=== PATIENT | male | born 1975 | race Asian ===

== ENCOUNTER 2018-05-01 10:17 | Emergency (ER) | payer SELFPAY ==
[~2018-05-01] VITALS: Ht 172.7 cm; Wt 81.2 kg
[2018-05-01 10:38] VITALS: BP 139/95
--- NOTE | 2018-05-01 10:38 | NUR ---
PT AMBULATES TO BED 4
--- NOTE | 2018-05-01 10:41 | NUR ---
Patient being evaluated by physician at bedside.
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
[2018-05-01] MEDS ORDERED: LIDOCAINE 1% 500 MG/50 ML VIAL INJ SCH (11:00)
[2018-05-01] MEDS ORDERED: LIDOCAINE 2% 1000 MG/50 ML VIAL INJ ONE (11:11)
--- NOTE | 2018-05-01 11:34 | NUR ---
STELLA PAUL DOING I AND D.
--- NOTE | 2018-05-01 11:47 | NUR ---
1 % LIDOCAINE NOT LOADED IN THE PYXIS ,ER MD NOTIFIED; LIDOCAINE 2 % 1000 MG / 50 ML WAS USED BY ER MD FOR I AND D; NO ADVERSE REACTION NOTED;
[2018-05-01 12:04] VITALS: BP 139/95
--- NOTE | 2018-05-01 12:04 | NUR ---
Patient discharged with v/s stable. Written and verbal after care instructions given and explained. Patient alert, oriented and verbalized understanding of instructions. with steady gait. All questions addressed prior to discharge. ID band removed. Patient advised to follow up with PMD. Rx of CLINDAMYCIN AND MOTRIN given. Patient educated on indication of medication including possible reaction and side effects. Opportunity to ask questions provided and answered.
== END 2018-05-01 12:04 | disposition home or self-care (01) ==
LOC: MED 10:17
DX: H66.42 Suppurative otitis media, unspecified, left ear (principal); F17.200 Nicotine dependence, unspecified, uncomplicated
CPT/HCPCS: 10060; 99283; J2001

== ENCOUNTER 2018-11-28 07:28 | Emergency (ER) | payer MEDICAID ==
[~2018-11-28] VITALS: Ht 170.2 cm; Wt 81.2 kg
[2018-11-28 07:33] VITALS: BP 155/95
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
--- NOTE | 2018-11-28 08:15 | NUR ---
Dr. Singleton evaluating patient at bedside.
[2018-11-28] MEDS ORDERED: MORPHINE SULFATE 4 MG/ML SYR IM ONE (08:25)
[2018-11-28] MEDS ORDERED: DIAZEPAM 5 MG TAB PO ONE (08:25)
--- NOTE | 2018-11-28 08:53 | NUR ---
PT AAOX4, FULL CLEAR SPEECH. PT STATES RELIEF FROM LOWER BACK PAIN, PT STATES /. PT ABLE TO AMBULATE STEADY WITH NO GUARDING. DENIES SOB, DIZZINESS.
[2018-11-28 09:05] VITALS: BP 143/90
--- NOTE | 2018-11-28 09:05 | NUR ---
Patient discharged with v/s stable. Written and verbal after care instructions given and explained. Patient verbalized understanding. Ambulatory with steady gait. All questions addressed prior to discharge. Advised to follow up with PMD.
== END 2018-11-28 09:05 | disposition home or self-care (01) ==
LOC: MED 07:28
DX: S39.012A Strain of muscle, fascia and tendon of lower back, initial encounter (principal); R03.0 Elevated blood-pressure reading, without diagnosis of hypertension; X58.XXXA Exposure to other specified factors, initial encounter; Y93.89 Activity, other specified; Y92.89 Other specified places as the place of occurrence of the external cause; Y99.8 Other external cause status
CPT/HCPCS: 96372; 99283; J2270

== ENCOUNTER 2019-07-25 09:06 | Emergency (ER) | payer MEDICAID ==
[~2019-07-25] VITALS: Ht 170.2 cm; Wt 77.6 kg
[2019-07-25 09:17] VITALS: BP 139/84
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
[2019-07-25] MEDS ORDERED: LIDOCAINE MPF 1% 10 MG/ML VIAL INJ ONE (10:05)
[2019-07-25 11:10] VITALS: BP 149/98
--- NOTE | 2019-07-25 11:10 | NUR ---
Patient discharged with v/s stable. Written and verbal after care instructions given and explained. Patient alert, oriented and verbalized understanding of instructions. Ambulatory with steady gait. All questions addressed prior to discharge. ID band removed. Patient advised to follow up with PMD. Rx of Keflex, Motrin, [place] given. Patient educated on indication of medication including possible reaction and side effects. Opportunity to ask questions provided and answered.
== END 2019-07-25 11:10 | disposition home or self-care (01) ==
LOC: MED 09:06
DX: M27.2 Inflammatory conditions of jaws (principal); F17.200 Nicotine dependence, unspecified, uncomplicated
CPT/HCPCS: 10060; 99283; J2001

== ENCOUNTER 2022-03-25 06:35 | Emergency (ER) | payer MEDICAID ==
[~2022-03-25] VITALS: Ht 170.2 cm; Wt 77.1 kg
[2022-03-25 06:43] VITALS: BP 146/113
--- NOTE | 2022-03-25 06:48 | NUR ---
Patient ambulated to bed 11.
--- NOTE | 2022-03-25 06:50 | NUR ---
Dr. Yanes examining patient.
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
--- NOTE | 2022-03-25 07:01 | NUR ---
ekg in progress
--- NOTE | 2022-03-25 07:22 | NUR ---
RECEIVED ORDER FROM DOCTOR GUZMAN TO PLACE PT ON 15L NON-REBREATHER Addendum: 03/25/22 at 0727 by [email or web address] FOR INCREASED CARBOXYHEMOGLOBIN LEVELS
--- NOTE | 2022-03-25 07:24 | NUR ---
REPORT RECEIVED FROM LETI ROB, TRANSFER OF CARE AT THIS TIME, PT IN BED AWAKE AND ALERT ON 15L NON-REBREATHER MASK, DENIES PAIN AT THIS TIME. RESPIRATIONS EVEN AND UNLABORED, NO ACCESSORY MUSCLE USE, NO NASAL FLARING
[2022-03-25 09:27] VITALS: BP 98/55
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
== END 2022-03-25 09:27 | disposition home or self-care (01) ==
LOC: MED 06:35
DX: T58.91XA Toxic effect of carbon monoxide from unspecified source, accidental (unintentional), initial encounter (principal); J18.9 Pneumonia, unspecified organism; F17.210 Nicotine dependence, cigarettes, uncomplicated; Y92.89 Other specified places as the place of occurrence of the external cause
CPT/HCPCS: 36600; 71045; 82803; 93005; 99285; Q0092

== ENCOUNTER 2022-04-08 07:45 | Emergency (ER) | payer BC, MEDICAID ==
[2022-04-08] MEDS ORDERED: KETO5SOL7 OP (10:22)
[2022-04-08 10:40] VITALS: BP 157/99
--- NOTE | 2022-04-08 10:40 | NUR ---
Patient discharged with v/s stable. Written and verbal after care instructions given and explained. Patient alert, oriented and verbalized understanding of instructions. Ambulatory with steady gait. All questions addressed prior to discharge. ID band removed. Patient advised to follow up with PMD. Rx of KETOTIFEN given. Patient educated on indication of medication including possible reaction and side effects. Opportunity to ask questions provided and answered.
== END 2022-04-08 10:40 | disposition home or self-care (01) ==
LOC: MED 07:45
DX: K14.0 Glossitis (principal); H10.13 Acute atopic conjunctivitis, bilateral; F17.200 Nicotine dependence, unspecified, uncomplicated
CPT/HCPCS: 99282

== ENCOUNTER 2022-11-22 20:13 | Emergency (ER) | payer BC, MEDICAID ==
[~2022-11-22] VITALS: Ht 172.7 cm; Wt 78.0 kg
[~2022-11-22 20:13] MED LIST: KETO5DRO68 OP
[2022-11-22 20:29] VITALS: BP 153/111
[2022-11-22] MEDS ORDERED: RABIES VACCINE 2.5 IU VIAL IMVAC ONE (20:55)
[2022-11-22] MEDS ORDERED: AMOXIL/CLAVULANATE 875/125 MG 1 TAB PO ONE (20:55)
[2022-11-22] MEDS ORDERED: RABIES IMMUNE GLOBULIN/PF 150 UNIT/ML VIAL MC ONE (20:55)
[2022-11-22] MEDS ORDERED: AMOX1TAB8 PO (22:15)
== END 2022-11-22 22:50 | disposition home or self-care (01) ==
LOC: MED 20:13
DX: S81.832A Puncture wound without foreign body, left lower leg, initial encounter (principal); W54.0XXA Bitten by dog, initial encounter; Y93.89 Activity, other specified; Y92.89 Other specified places as the place of occurrence of the external cause; Y99.8 Other external cause status
CPT/HCPCS: 90471; 90675; 99283

== ENCOUNTER 2022-11-25 17:29 | Emergency (ER) | payer BC, MEDICAID ==
[~2022-11-25] VITALS: Ht 177.8 cm; Wt 95.3 kg
[~2022-11-25 17:29] MED LIST changes: +AMOX1TAB8 PO
[2022-11-25 17:47] VITALS: BP 157/101
--- NOTE | 2022-11-25 17:58 | NUR ---
SOFYA NATH EVALUATING PT
--- NOTE | 2022-11-25 17:59 | NUR ---
The patient's care was reviewed and supervised by DICK MORRELL RN.
[2022-11-25] MEDS ORDERED: RABIES VACCINE 2.5 IU VIAL IMVAC ONE (18:00)
--- NOTE | 2022-11-25 18:00 | NUR ---
47YO MALE PT IN FOR RABIES SERIES. PT WAS SEEN HERE IN ER ON 11/22/22 FOR DOG BITE AND RECEIVED FIRST DOSE OF SERIES TREATMENT. DENIES N/V/D,FEVER,CHILLS, PAIN OR CHANGE IN CONDITION. PT AAOX4, NO VISIBLE DISTRESS. HX:DENIES NKA
[2022-11-25 18:43] VITALS: BP 145/88
--- NOTE | 2022-11-25 18:43 | NUR ---
Patient discharged with v/s stable. Written and verbal after care instructions FOR ANIMAL BITE AND RABIES IMMUE GLOBULIN given and explained. Patient verbalized understanding. Ambulatory with steady gait. All questions addressed prior to discharge. Advised to follow up with PMD. RABIES TREATMENT RESOURCES GIVEN.
--- NOTE | 2022-11-25 18:45 | NUR ---
The patient's care was reviewed and supervised by ED Agency Nurse 8, RN, RN.
== END 2022-11-25 18:43 | disposition home or self-care (01) ==
LOC: MED 17:29
DX: M79.662 Pain in left lower leg (principal); Z48.00 Encounter for change or removal of nonsurgical wound dressing; Z23 Encounter for immunization
CPT/HCPCS: 90471; 90675; 99281; 99283

== ENCOUNTER 2022-12-03 17:34 | Emergency (ER) | payer BC, MEDICAID ==
[~2022-12-03] VITALS: Ht 170.2 cm; Wt 82.6 kg
[2022-12-03 17:41] VITALS: BP 134/78
[2022-12-03] MEDS ORDERED: RABIES VACCINE 2.5 IU VIAL IMVAC ONE (17:45)
== END 2022-12-03 18:12 | disposition home or self-care (01) ==
LOC: MED 17:34
DX: Z23 Encounter for immunization (principal); Z79.899 Other long term (current) drug therapy
CPT/HCPCS: 90471; 90675; 99281; 99283

== ENCOUNTER 2022-12-10 17:22 | Emergency (ER) | payer BC, MEDICAID ==
[~2022-12-10] VITALS: Ht 172.7 cm; Wt 83.5 kg
[2022-12-10 17:25] VITALS: BP 164/106
[2022-12-10] MEDS ORDERED: RABIES VACCINE 2.5 IU VIAL IMVAC ONE (17:50)
--- NOTE | 2022-12-10 18:29 | NUR ---
PATIENT AMBULATED TO BED 10 WITHOUT ASSISTANCE
[2022-12-10 18:40] VITALS: BP 159/103
== END 2022-12-10 18:39 | disposition home or self-care (01) ==
LOC: MED 17:22
DX: Z23 Encounter for immunization (principal); Z79.899 Other long term (current) drug therapy
CPT/HCPCS: 90471; 90675; 99281; 99283

== ENCOUNTER 2023-11-02 09:41 | Emergency (ER) | payer BC, OTHER ==
[~2023-11-02] VITALS: Ht 170.2 cm; Wt 82.6 kg
[2023-11-02 09:54] VITALS: BP 143/95; PULSE 65; RESP 18; TEMP 98.3; O2SAT 100
[2023-11-02] MEDS ORDERED: CYCL-711 PO (12:18)
[2023-11-02] MEDS ORDERED: METH1ADH21 TP (12:18)
[2023-11-02] MEDS ORDERED: NAPR-1704 PO (12:18)
[2023-11-02] MEDS: KETOROLAC 30 MG/ML VIAL IM ONE (12:25)
== END 2023-11-02 12:26 | disposition home or self-care (01) ==
LOC: MED 09:41
DX: S46.912A Strain of unspecified muscle, fascia and tendon at shoulder and upper arm level, left arm, initial encounter (principal); F17.210 Nicotine dependence, cigarettes, uncomplicated; Z71.6 Tobacco abuse counseling; Z79.899 Other long term (current) drug therapy; X58.XXXA Exposure to other specified factors, initial encounter; Y92.89 Other specified places as the place of occurrence of the external cause; Y93.89 Activity, other specified; Y99.8 Other external cause status
CPT/HCPCS: 96372; 99283; J1885

== ENCOUNTER 2023-11-05 06:20 | Emergency (ER) | payer BC, OTHER ==
[~2023-11-05] VITALS: Ht 170.2 cm; Wt 81.6 kg
[~2023-11-05 06:20] MED LIST changes: +CYCL-711 PO; +METH1ADH21 TP; +NAPR-1704 PO
[2023-11-05 07:03] VITALS: BP 147/107; PULSE 74; RESP 18; TEMP 97.6; O2SAT 97
[2023-11-05] MEDS ORDERED: PRED20TA5 PO (07:20)
[2023-11-05 07:28] VITALS: BP 147/107; PULSE 74; RESP 18; TEMP 97.6; O2SAT 97
== END 2023-11-05 07:28 | disposition home or self-care (01) ==
LOC: MED 06:20
DX: M25.512 Pain in left shoulder (principal); F17.200 Nicotine dependence, unspecified, uncomplicated; Z79.899 Other long term (current) drug therapy
CPT/HCPCS: 99283